=== PATIENT | male | born 1975 | race Caucasian/White ===

== ENCOUNTER 2019-05-22 03:06 | Inpatient (IN) ==
--- NOTE | 2019-05-22 03:35 | PROVIDER DOCUMENTATION ---
HPI-Chest Pain - General Stated Complaint: CHEST PAIN Time Seen by Provider: 05/22/19 03:15 Allergies/Adverse Reactions: Patient Allergies Allergy/AdvReac Type Severity Reaction Status Date / Time poison pedro luis extract Allergy RASH Verified 05/22/19 04:17 narcotics AdvReac Unknown Uncoded 05/22/19 04:17 Home Medications: Home Medication List Medication Instructions Recorded Confirmed Last Taken Type Lisinopril 10 mg PO DAILY 05/22/19 05/22/19 Unknown History Tadalafil 5 mg PO DAILY 05/22/19 05/22/19 Unknown History - History of Present Illness-CP Nature of Presenting Problem: A 43 y/o male presents with c/o left sided chest pain since 2 am. Woke up from sleep and started having chest pain, took aspirin 81 mg x4 tabs and it did not help. Pain is about a 6 on pain scale. Denies any radiation. Was sweating when he woke up. Denies any cough, sob or palpitations or URI symptoms or N/V/D. Denies any fever or chills. Denies any significant hx of HTN, DM, CAD. was on testosterone replacement therapy, was stopped about 3-4 weeks ago. Denies any injury. Review of Systems - Adult - REVIEW OF SYSTEMS - ADULT Constitutional: denies: no symptoms reported Eyes: denies: no symptoms reported Ears, Nose, Mouth & Throat: denies: no symptoms reported Cardiovascular: reports: see HPI Respiratory: denies: no symptoms reported Gastrointestinal: denies: no symptoms reported Genitourinary: denies: no symptoms reported Musculoskeletal: denies: no symptoms reported Integumentary: denies: no symptoms reported Neurological: denies: no symptoms reported Psychiatric: denies: no symptoms reported Endocrine: denies: no symptoms reported Hematologic/Lymphatic: denies: no symptoms reported Allergic/Immunologic: denies: no symptoms reported Past History - Adult - PAST MEDICAL HISTORY-ADULT Review of Records: reports: Nursing Assessment Review, Medications Reviewed, Social history reviewed & non-contributory. Physical Exam-General - PHYSICAL EXAM-ADULT Initial Vital Signs Reviewed: Yes - CONSTITUTIONAL General Appearance: appears well, alert, no apparent distress - EYES Eyes: PERRL/EOMI - HEAD, EARS, NOSE, MOUTH & THROAT HENMT: normocephalic/atraumatic, moist mucous membranes - NECK Neck: supple - RESPIRATORY Respiratory: lungs clear, no respiratory distress, no accessory muscle use - CARDIOVASCULAR Cardiovascular: regular rate, rhythm, no edema, no murmur - GASTROINTESTINAL (ABDOMEN) Abdominal Exam: non tender, soft - MUSCULOSKELETAL Back Exam: normal inspection, no CVA tenderness, no vertebral tenderness Extremity: no pedal edema - SKIN Integumentary: normal color, warm/dry - NEUROLOGIC Neurologic: grossly normal, no motor/sensory deficits - PSYCHIATRIC Psych/Mental Status: normal mood/affect, oriented x 3 - HEART Score HEART Score: History: Slightly Suspicious HEART Score: ECG: Normal HEART Score: Age: < or = 45 Years HEART Score: Risk Factors for Atherosclerotic Disease: 1 or 2 Risk Factors HEART Score: Troponin: < or = Normal Limit Total HEART Score:: 1 Progress - PLAN OF CARE/RESULTS Progress/Plan/Lab Results: Vital Signs - 8 hr 05/22/19 03:15 05/22/19 05:44 Temperature 98.2 F Pulse Rate 90 80 Respiratory Rate 20 17 Blood Pressure 146/77 114/63 O2 Sat by Pulse Oximetry 97 99 Laboratory Results - last 24 hr 05/22/19 05/22/19 05/22/19 03:25 03:25 03:25 WBC RBC Hgb Hct MCV MCH MCHC RDW Std Deviation Plt Count MPV Immature Gran % (Auto) Neut % (Auto) Lymph % (Auto) [place] % (Auto) Eos % (Auto) Baso % (Auto) Immature Gran # (Auto) Neut # (Auto) Lymph # (Auto) [place] # (Auto) Eos # (Auto) Baso # (Auto) D-Dimer, Quantitative 0.34 Sodium 140 Potassium 4.7 Chloride 100 Carbon Dioxide 29 Anion Gap 11 BUN 24 H Creatinine 1.2 Estimated GFR/1.73 m2 > 60 BUN/Creatinine Ratio 20 Glucose 112 H Calculated Osmolality 284 Calcium 9.6 Total Bilirubin 0.62 AST 109 H ALT 99 H Alkaline Phosphatase 49 Creatine Kinase 5249 H Creatine Kinase Index 0.3 CK-MB (CK-2) 17.89 H Troponin T High Sens 29 H Total Protein 7.1 Albumin 4.2 Globulin 2.9 Albumin/Globulin Ratio 1.4 05/22/19 03:25 WBC 10.80 RBC 5.15 Hgb 16.1 Hct 48.1 MCV 93.4 MCH 31.3 H MCHC 33.5 RDW Std Deviation 13.8 Plt Count 230 MPV 10.3 Immature Gran % (Auto) 0.0 Neut % (Auto) 58.7 Lymph % (Auto) 27.3 [place] % (Auto) 12.6 H Eos % (Auto) 1.0 Baso % (Auto) 0.4 Immature Gran # (Auto) 0.00 Neut # (Auto) 6.34 Lymph # (Auto) 2.95 [place] # (Auto) 1.36 H Eos # (Auto) 0.11 Baso # (Auto) 0.04 D-Dimer, Quantitative Sodium Potassium Chloride Carbon Dioxide Anion Gap BUN Creatinine Estimated GFR/1.73 m2 BUN/Creatinine Ratio Glucose Calculated Osmolality Calcium Total Bilirubin AST ALT Alkaline Phosphatase Creatine Kinase Creatine Kinase Index CK-MB (CK-2) Troponin T High Sens Total Protein Albumin Globulin Albumin/Globulin Ratio Orders Category Date Time Status CHEST-1 VIEW [RAD] Stat Exams 05/22/19 03:35 Taken CBC WITH ELECTRONIC DIFF [HEME] Stat Lab 05/22/19 03:25 Completed CK PROFILE [SP CHEM] Stat Lab 05/22/19 03:25 Completed COMPREHENSIVE METABOLIC PANEL [CHEM] Stat Lab 05/22/19 03:25 Completed D-DIMER [COAG] Stat Lab 05/22/19 03:25 Completed TROPONIN T HIGH SENSITIVITY Stat Lab 05/22/19 03:25 Completed 0.9% Sodium Chloride Inj [Ns] 1,000 ml Med 05/22/19 05:47 Active IV 999 mls/hr Ketorolac [Toradol] Med 05/22/19 03:36 Discontinued 30 mg IM NOW ONE Result Diagrams: 05/22/19 03:25 05/22/19 03:25 - CONSULTS/PCP/HOSPITALIST Notification #1 *Consult/PCP/Hospitalist*: d/w Dr Oates Time Discussed: 06:17 Consult Disposition: Admit (for observation) Departure - Departure Date of Disposition Decision: 05/22/19 Time of Disposition Decision: 06:20 DIAGNOSIS: Rhabdomyolysis Disposition: ADMITTED INPATIENT 09 Certified Medical Emergency: Emergent Condition: Stable Referrals and Follow-Ups: None,PCP [Primary Care Provider] - - Critical Care Note This patient required my direct & personal management of CC.: No Attestation - Physician/ ADELINA Attestation Patient care was provided by Advanced Practice Provider:: No The physician spent face to face time with patient:: Yes Advanced Practice Provider documentation review:: Supervising physician onsite and consulted in the evaluation and care of this patient. The physician did have a face to face encounter with the patient.
[2019-05-22] MEDS ORDERED: TORADOL IM ONE (03:36)
[2019-05-22 04:22] LABS: BASO# 0.04 X1000 (0.0-0.2); BASO% 0.4 % (0.0-0.8); EOS# 0.11 X1000 (0.0-0.7); HEMATOCRIT 48.1 % (42.0-52.0); HEMOGLOBIN 16.1 g/dL (14.0-18.0); LYMPH# 2.95 X1000 (1.2-3.4); LYMPH% 27.3 % (20.5-51.1); MCH 31.3 PG (27-31); MCHC 33.5 g/dL (33-37); MCV 93.4 FL (81-99); MONO# 1.36 X1000 (0.11-0.59); MONO% 12.6 % (1.7-9.3); MPV 10.3 FL (7.4-10.4); NEUT# 6.34 X1000 (1.4-6.5); NEUT% 58.7 % (42.2-75.2); PLT 230 X1000 (130-400); RBC 5.15 XMIL (4.7-6.1); RDW 13.8 % (11.5-14.5)
[2019-05-22 05:07] LABS: AGAP 11; ALB/GLOB RATIO 1.4; ALBUMIN 4.2 g/dL (3.5-5.0); ALKALINE PHOSPHATASE 49 U/L (32-122); BUN 24 mg/dL (8-22); CALCIUM 9.6 mg/dL (8.8-10.2); CHLORIDE 100 mmol/L (98-107); COSMO 284; CREATININE 1.2 mg/dL (0.7-1.2); ESTIMATED GFR > 60; GLUCOSE 112 mg/dL (70-104); GOT 109 U/L (10-34); GPT 99 U/L (10-44); POTASSIUM 4.7 mmol/L (3.5-5.1); SODIUM 140 mmol/L (136-145); TCO2 29 mmol/L (25-35); TOTAL BILIRUBIN 0.62 mg/dL (0.20-1.00); TOTAL PROTEIN 7.1 g/dL (6.3-8.3)
[2019-05-22 05:14] LABS: CK PROFILE 5249 U/L (24-204)
[2019-05-22 05:41] LABS: CK INDEX 0.3 (0.0-2.5); CK-MB 17.89 ng/mL (0.0-5.0)
[2019-05-22] MEDS ORDERED: NS 1,000 ML IV ONE ×2 (05:47→07:51)
--- NOTE | 2019-05-22 06:58 | HISTORY AND PHYSICAL ---
PRIMARY CARE PHYSICIAN: None. CHIEF COMPLAINT: Chest pain. HISTORY OF PRESENTING ILLNESS: This is a 43-year-old male without any significant past medical history, who presented to the emergency department with 3 days history of having left-sided chest pain. The patient states that recently he was working out more heavier with weights and states that he also stopped his testosterone replacement therapy due to having abnormal liver enzymes. He was seen in the ED. He had laboratories drawn which did also show a markedly elevated CPK and suspected possibly he had rhabdomyolysis. Due to these findings, it was thought that we will place him for observation for further evaluation and management. At the time of my examination, the patient denied any headache, fever, chills, nausea, vomiting, diarrhea, hemoptysis, melena or weight changes, but complained of chest discomfort. PAST MEDICAL HISTORY: None. PAST SURGICAL HISTORY: Hernia repair. Vasectomy. ALLERGIES: Narcotics. CURRENT MEDICATIONS: None. SOCIAL HISTORY: He is a former smoker. History of alcohol and illicit drug use in the past. FAMILY HISTORY: No history of coronary disease. REVIEW OF SYSTEMS: A 14-point review of systems is as in HPI, other systems negative. PHYSICAL EXAMINATION: GENERAL: Cooperative, friendly male. He is resting more comfortably now. VITAL SIGNS: Temperature 98.2 degrees, pulse 90, respirations 20, blood pressure 146/77. HEENT: Atraumatic, normocephalic. Extraocular movements intact. PERRLA. NECK: No masses. CHEST: Clear to auscultation. CARDIOVASCULAR: Regular rate and rhythm. S1, S2. ABDOMEN: Soft. Positive bowel sounds. EXTREMITIES: No edema. NEUROLOGIC: He is awake, alert, and oriented x3. : No bladder distention. SKIN: Warm. LABORATORIES AND STUDIES: D-dimer 0.34. WBC 10.80, hemoglobin 16.1, hematocrit 48.1, platelets 230,000. Sodium 140, potassium 4.7, chloride 100, CO2 is 29, BUN is 24, creatinine is 1.2, glucose is 112. CK is 5,249. ASSESSMENT: A 43-year-old male, without a significant past medical history, who presented to the emergency department with 3 days history of having chest pain. The patient apparently has been working out more than usual and he has been off of his testosterone replacement therapy. He complained of 3 days history of persistent chest discomfort. He was seen in the ED and noted to have elevated CKs, suspected for rhabdomyolysis. Subsequently, we will place him for observation for further evaluation and management. 1. Chest pain, atypical, probably musculoskeletal. 2. Suspected rhabdomyolysis. PLAN: 1. We will admit the patient to a medical floor with telemetry. 2. We will continue to check cardiac enzymes and trend it. 3. We will give the patient adequate pain control and muscle relaxant. 4. Continue with IV fluid hydration. Monitor his CK enzyme levels. 5. We will continue to follow, and reassess and make further recommendations based on patient's clinical course. cc: Pelon Oates MD MTDD
--- NOTE | 2019-05-22 07:06 | Diag Imaging Result Doc PS360 ---
EXAM: CHEST-1 VIEW 05/22/2019 HISTORY: CP TECHNIQUE: AP portable at 0405 COMMENT: There is no evidence of acute cardiac or pulmonary disease. There are no previous studies available for comparison. IMPRESSION: No evidence of acute disease. Electronically signed by Jason Dwyer 05/22/2019 7:04 AM
[2019-05-22] MEDS ORDERED: FLEXERIL PO ONE (07:51)
[2019-05-22] MEDS ORDERED: ZOFRAN IV PRN (07:51)
[2019-05-22] MEDS ORDERED: TYLENOL PO PRN (07:51)
[2019-05-22] MEDS: ASPIRIN PO SCH (08:08)
--- NOTE | 2019-05-22 08:17 | EKG Report ---
Test Performed on : 05/22/2019 03:12:30 AM Test Reason : ED. NO EKG ORDER FOR MUSE Blood Pressure : / mmHG Vent. Rate : 095 BPM Atrial Rate : 095 BPM P-R Int : 152 ms QRS Dur : 092 ms QT Int : 338 ms P-R-T Axes : 075 020 002 degrees QTc Int : 424 ms Normal sinus rhythm. Normal ECG No previous ECGs available Unconfirmed Result
[2019-05-22] MEDS ORDERED: PRINIVIL PO SCH (09:00)
[2019-05-22] MEDS ORDERED: NS 1,000 ML IV SCH (09:15)
[2019-05-22] MEDS: PRILOSEC PO SCH (09:24)
[2019-05-22] MEDS: NS 1,000 ML IV SCH ×3 (09:25→22:24)
[2019-05-22 09:49] LABS: CK INDEX 0.3 (0.0-2.5); CK-MB 13.51 ng/mL (0.0-5.0)
--- NOTE | 2019-05-22 14:57 | ECHO REPORT ---
ORDER DATE: 05/22/2019 INTERPRETING PHYSICIAN: Dr. Navdeep Michel. ECHOCARDIOGRAPHIC MEASUREMENTS: 1. Interventricular septum: 1.4 cm. 2. Left ventricular posterior wall: 1.4 cm. 3. Diastolic diameter: 5.2 cm. 4. Left atrium: 4 cm. 5. Aorta: 2.2 cm. SUMMARY OF THE 2-DIMENSIONAL IMAGIN. Mitral valve was normal. 2. Tricuspid valve was normal. 3. Pulmonic valve was normal. 4. There was mild pulmonary regurgitation. 5. Aortic valve leaflets were trileaflet. There was significant calcification noted on the noncoronary cusp of the aortic valve. 6. There was mild tricuspid regurgitation. Peak velocity across the tricuspid valve was less than 2 m/sec. 7. There was mild mitral regurgitation. 8. Peak velocity across the aortic valve was 2.5 m/sec with a mean gradient of 14 mmHg, aortic valve area of 2.6 squared cm. There is no aortic stenosis. There is aortic sclerosis. There is no aortic regurgitation. 9. Normal left ventricular cavity size. Mild left ventricular hypertrophy. Estimated ejection fraction of 60%. 10. Normal diastolic function. 11. Normal right ventricular cavity size and function. 12. There is no pericardial effusion or obvious intracardiac mass or thrombus seen. cc: MD Hector Diaz MD
[2019-05-23 02:08] LABS: CK INDEX 0.3 (0.0-2.5); CK-MB 7.56 ng/mL (0.0-5.0)
[2019-05-23] MEDS: NS 1,000 ML IV SCH ×4 (04:50→18:07)
[2019-05-23] MEDS: PRILOSEC PO SCH (06:17)
[2019-05-23 07:42] LABS: AGAP 10; ALB/GLOB RATIO 1.4; ALBUMIN 3.8 g/dL (3.5-5.0); ALKALINE PHOSPHATASE 42 U/L (32-122); BUN 16 mg/dL (8-22); CALCIUM 8.7 mg/dL (8.8-10.2); CHLORIDE 102 mmol/L (98-107); COSMO 279; CREATININE 1.1 mg/dL (0.7-1.2); ESTIMATED GFR > 60; GLUCOSE 101 mg/dL (70-104); GOT 57 U/L (10-34); GPT 71 U/L (10-44); POTASSIUM 4.3 mmol/L (3.5-5.1); SODIUM 139 mmol/L (136-145); TCO2 27 mmol/L (25-35); TOTAL BILIRUBIN 0.53 mg/dL (0.20-1.00); TOTAL PROTEIN 6.6 g/dL (6.3-8.3)
[2019-05-23 07:46] LABS: CK PROFILE 1878 U/L (24-204)
[2019-05-23 07:58] LABS: BASO# 0.03 X1000 (0.0-0.2); BASO% 0.3 % (0.0-0.8); EOS# 0.05 X1000 (0.0-0.7); EOS% 0.5 % (0.0-10.0); HEMOGLOBIN 14.6 g/dL (14.0-18.0); IMM GRAN# 0.02 X1000 (0.0-0.04); IMM GRAN% 0.2 % (0.0-0.5); LYMPH# 1.42 X1000 (1.2-3.4); LYMPH% 14.2 % (20.5-51.1); MCH 30.5 PG (27-31); MCHC 32.4 g/dL (33-37); MCV 94.1 FL (81-99); MONO# 1.48 X1000 (0.11-0.59); MONO% 14.8 % (1.7-9.3); MPV 10.5 FL (7.4-10.4); NEUT# 6.97 X1000 (1.4-6.5); PLT 197 X1000 (130-400); RBC 4.78 XMIL (4.7-6.1); RDW 13.9 % (11.5-14.5); WBC 9.97 X1000 (4.8-10.8)
[2019-05-23 08:08] LABS: CK INDEX 0.3 (0.0-2.5); CK-MB 6.44 ng/mL (0.0-5.0)
[2019-05-23 08:09] LABS: CHOLESTEROL 162 mg/dL (0-200); HDL 49 mg/dL (35-55); LDL 101 mg/dL; TRIGLYCERIDES 60 mg/dL (39-160); VLDL 12 mg/dL
[2019-05-23] MEDS: NORVASC PO SCH (09:28)
[2019-05-23] MEDS: ASPIRIN PO SCH (09:28)
[2019-05-23] MEDS: ULTRAM PO PRN ×2 (09:29→15:56)
--- NOTE | 2019-05-23 11:47 | PROGRESS NOTE ---
DATE: 05/23/2019 SUBJECTIVE: The patient is complaining today of generalized achiness. He is still having some chest pain, but only with deep inspiration. His echocardiogram is good, just mild left ventricular hypertrophy. His x-ray is normal. He works out at least 5 times per week, and as per the patient, he lifts a lot of weight. Apparently, he has been training really hard. He uses some vitamin supplements including creatine. Today his temperature increased a little bit to 99.7. His troponins are negative x4. His CK level is trending down. Initially was 5249 and today is 1878. I will continue with the IV fluids. OBJECTIVE: Vital Signs: Temperature 99.7 degrees, pulse 98, respiratory rate 19, blood pressure 157/71, and oxygen saturation 98% on room air. HEENT: Head normocephalic. No trauma. PERRLA. Neck: Supple. No JVD. No masses. Central trachea. Chest: Clear to auscultation. No wheezing. No rales. No tenderness to palpation. Abdomen: Soft, nontender, nondistended. No hepatosplenomegaly. Extremities: No edema, no clubbing, no cyanosis. Neurological: The patient is completely awake and alert. He is oriented x3. No focal deficits. LABORATORY DATA: WBC 9.9, hemoglobin 14.6, hematocrit 45, platelets 197,000. Sodium 139, potassium 4.3, chloride 102, bicarbonate 27, BUN 16, creatinine 1.1, glucose 101, calcium 8.7. AST 57, ALT 71, alkaline phosphatase 42. CK level 1878. ASSESSMENT AND PLAN: 1. Rhabdomyolysis. I do believe this is related to heavy workout. This patient has been working out at least 5 times per week. He has been training really hard and lifting a lot of weight, so this probably is because of muscle destruction. I will continue with the intravenous fluids and monitoring this patient closely. Initially, his CK level was 5249 and today is 1878, and it has been trending down nicely. He does take some supplements like creatine at home and other multivitamins. 2. Chest pain located in the left side of the chest. It is nonspecific and likely atypical. It is reproducible with deep inspiration, sharp. Cardiac enzymes/troponins are negative x4. I did an echocardiogram that showed mild left ventricular hypertrophy, but no other issues. 3. Elevated liver function tests. As per the patient, this is chronic. It is also trending down. Apparently, he was using testosterone, which has been stopped because of the elevation of the liver function tests. We will continue to monitor, and we will avoid hepatotoxic medications. 4. Mild acute kidney injury upon admission, resolved. His creatinine is probably due to his muscle mass, but still within normal limits. 5. Hypertension. He used to be on lisinopril, but since he is having rhabdomyolysis, I will stop this treatment due to the possibility of acute kidney problems. I have switched to amlodipine, let us see how he does. DISCUSSION: Overall, this patient seems to be stable. I do believe this patient can be discharged in the next 24 to 48 hours if the CK level is going down and he is feeling better. He had a low-grade temperature today. We will keep an eye on this. He has not been at home. He has been outside and actually working out in the gym. If we see that he is having symptoms like shortness of breath or more elevated temperature, probably we need to ask to rule out Coronavirus, but for now, I will monitor. cc: Hector Metz MD
[2019-05-23] MEDS: TYLENOL PO PRN (23:26)
[2019-05-24] MEDS: NS 1,000 ML IV SCH ×2 (04:06→13:45)
[2019-05-24 05:08] LABS: EOS# 0.06 X1000 (0.0-0.7); EOS% 0.5 % (0.0-10.0); LYMPH% 12.8 % (20.5-51.1); MCH 31.4 PG (27-31); MCHC 32.7 g/dL (33-37); MCV 96.3 FL (81-99); MONO# 1.92 X1000 (0.11-0.59); MONO% 16.4 % (1.7-9.3); MPV 9.8 FL (7.4-10.4); PLT 184 X1000 (130-400); RBC 5.09 XMIL (4.7-6.1); RDW 13.9 % (11.5-14.5); WBC 11.72 X1000 (4.8-10.8)
[2019-05-24 05:47] LABS: LYMPHS 15 % (21-51); MONO 14 % (1-9); SEGS 71 % (42-75)
[2019-05-24 05:49] LABS: BUN 13 mg/dL (8-22); CALCIUM 8.7 mg/dL (8.8-10.2); TOTAL BILIRUBIN 0.64 mg/dL (0.20-1.00)
[2019-05-24 05:51] LABS: AGAP 15; ALB/GLOB RATIO 0.7; ALBUMIN 2.9 g/dL (3.5-5.0); ALKALINE PHOSPHATASE 41 U/L (32-122); CHLORIDE 100 mmol/L (98-107); CK PROFILE 1158 U/L (24-204); ESTIMATED GFR > 60; GLUCOSE 88 mg/dL (70-104); GOT 54 U/L (10-34); GPT 65 U/L (10-44); POTASSIUM 5.1 mmol/L (3.5-5.1); SODIUM 133 mmol/L (136-145); TCO2 18 mmol/L (25-35); TOTAL PROTEIN 6.9 g/dL (6.3-8.3)
[2019-05-24 05:55] LABS: COSMO 266
[2019-05-24] MEDS: PRILOSEC PO SCH (06:10)
[2019-05-24 06:11] LABS: CK INDEX 0.3 (0.0-2.5); CK-MB 3.93 ng/mL (0.0-5.0)
--- NOTE | 2019-05-24 06:21 | Diag Imaging Result Doc PS360 ---
EXAM: CHEST-PORTABLE HISTORY: CP TECHNIQUE: Single view COMPARISON: 05/22/2019 FINDINGS: The lungs are well expanded. The heart is not enlarged. The vessels are not distended. Interval development of a dense infiltrate in the mid left lung. No effusion identified. IMPRESSION: Left-sided pneumonia Electronically signed by Curt Cortes 05/24/2019 6:19 AM
[2019-05-24] MEDS: ASPIRIN PO SCH ×2 (07:57→10:26)
[2019-05-24] MEDS: NORVASC PO SCH ×2 (07:57→10:26)
[2019-05-24] MEDS: TYLENOL PO PRN ×3 (07:57→22:45)
[2019-05-24] MEDS ORDERED: VANCOMYCIN IV PER PHARMACY MISC SCH (12:00)
[2019-05-24] MEDS: ZOSYN 3.375 GM in NS 50 ML IV SCH ×2 (13:45→20:32)
--- NOTE | 2019-05-24 14:13 | PROGRESS NOTE ---
DATE: 05/24/2019 SUBJECTIVE: Patient since last night and this morning has been spiking fever. The last one that we have is from this morning 102.4 with chills. He denies any shortness of breath but he reports mild cough. No really sore throat or sneezing. OBJECTIVE: Vital Signs: Temperature 98.6 degrees, heart rate 84, respiratory rate 18, blood pressure 136/65 O2 saturation 98% on room air. General: This is a 43-year-old, male, lying in bed, in no acute distress. Cardiovascular: S1, S2 heard. No murmurs, gallops, or rubs. Regular rate and rhythm. Respiratory: Bilaterally to auscultation. No work of breathing or using accessory muscles. Abdomen: Soft, nontender to palpation. Bowel sounds present. No organomegaly. Extremities: No clubbing, cyanosis, or edema. Peripheral pulses present in both legs. Neurological: Patient alert oriented x3. Moves 4 extremities. LABORATORY DATA: White cell count 11.72 with hemoglobin 16.0 hematocrit 49.0. Lymphocytes 12.8. Sodium 133. Alkaline phosphatase 1158. ASSESSMENT AND PLAN: 1. Rhabdomyolysis. That condition is getting worse with IV fluids. We will continue with the same management. 2. Elevated liver function tests. Apparently there has been documented like chronic and is trending down. Apparently he has been using testosterone, that is reason why those have been getting higher. In any case, we will continue to monitor BMP. 3. Mild acute kidney injury. That condition is completely resolved. 4. Left pneumonia. This patient was admitted basically to the hospital for rhabdomyolysis and elevated liver function tests. That is actually getting better. Since yesterday he started having fever chills some cough and the x-ray from this morning revealed left- sided pneumonia. The patient denies any sick contacts. I think considering all this information prefer to go ahead and testing for Coronavirus Disease 19. We are going to continue with current antibiotics. In this case, Esmen assuming this is a bacterial pneumonia as well. It is important to remark that he was complaining of chest pain non typical. We will see what this test shows. cc: Cuco Silverman MD [facility] HOSPITALChris
[2019-05-24] MEDS: ULTRAM PO PRN ×2 (16:16→22:45)
[2019-05-24] MEDS: VANCOMYCIN 2 GM in NS 500 ML IV SCH (16:17)
[2019-05-25] MEDS: ZOSYN 3.375 GM in NS 50 ML IV SCH ×4 (02:57→23:03)
[2019-05-25] MEDS: NS 1,000 ML IV SCH ×2 (03:25→23:05)
[2019-05-25] MEDS: VANCOMYCIN 2 GM in NS 500 ML IV SCH ×2 (03:58→14:52)
[2019-05-25 05:51] LABS: BASO# 0.04 X1000 (0.0-0.2); BASO% 0.4 % (0.0-0.8); EOS# 0.15 X1000 (0.0-0.7); EOS% 1.6 % (0.0-10.0); HEMOGLOBIN 15.6 g/dL (14.0-18.0); IMM GRAN# 0.04 X1000 (0.0-0.04); IMM GRAN% 0.4 % (0.0-0.5); LYMPH# 1.28 X1000 (1.2-3.4); LYMPH% 13.7 % (20.5-51.1); MCH 30.8 PG (27-31); MCHC 33.2 g/dL (33-37); MCV 92.7 FL (81-99); MONO# 1.39 X1000 (0.11-0.59); MONO% 14.8 % (1.7-9.3); MPV 10.2 FL (7.4-10.4); NEUT# 6.47 X1000 (1.4-6.5); NEUT% 69.1 % (42.2-75.2); PLT 172 X1000 (130-400); RBC 5.07 XMIL (4.7-6.1); RDW 13.5 % (11.5-14.5); WBC 9.37 X1000 (4.8-10.8)
[2019-05-25 06:13] LABS: AGAP 12; BUN 14 mg/dL (8-22); CALCIUM 8.7 mg/dL (8.8-10.2); CHLORIDE 96 mmol/L (98-107); COSMO 275; CREATININE 1.2 mg/dL (0.7-1.2); ESTIMATED GFR > 60; GLUCOSE 109 mg/dL (70-104); POTASSIUM 4.1 mmol/L (3.5-5.1); SODIUM 137 mmol/L (136-145); TCO2 29 mmol/L (25-35)
[2019-05-25] MEDS: PRILOSEC PO SCH (06:28)
[2019-05-25] MEDS: TYLENOL PO PRN ×3 (06:28→23:03)
[2019-05-25] MEDS: ULTRAM PO PRN ×3 (06:28→23:03)
[2019-05-25] MEDS: NORVASC PO SCH (08:18)
[2019-05-25] MEDS: ASPIRIN PO SCH (08:18)
--- NOTE | 2019-05-25 12:52 | PROGRESS NOTE ---
DATE: 05/25/2019 SUBJECTIVE: Patient continues to have fever. Denies any shortness of breath. He reports pleuritic chest pain in the left side. OBJECTIVE: Vital Signs: Temperature 99.4 degrees, heart rate 98, respiratory rate 18, blood pressure 124/50, O2 saturation 96% on room air. Temperature max this morning at 4 a.m. was 102.2 degrees. GENERAL EXAMINATION: This is a 43-year-old, male, lying in bed, in no acute distress. Cardiovascular Examination: S1 and S2 heard. No murmurs, gallops, or rubs. Regular rate and rhythm. Respiratory Exam: Clear bilaterally to auscultation. No work of breathing or using accessory muscles. Abdomen: Soft, nontender to palpation. Bowel sounds present. No organomegaly. Extremities: No clubbing, cyanosis, or edema. Peripheral pulses present in both legs. Neurological Exam: Patient alert and oriented x3. Moves 4 extremities. LABORATORY DATA: Reviewed. ASSESSMENT AND PLAN: 1. Rhabdomyolysis. Condition is getting better with IV fluids. Renal function is completely okay. We will continue to monitor. 2. Elevated liver function tests. Aware. We will continue to monitor. That condition is deemed to be chronic. 3. Acute kidney injury, resolved. 4. Left lower lobe pneumonia. The patient was admitted for conditions mentioned above but started having fevers here and chest pain in the left side so patient is being treated with vancomycin and Zosyn but he continues to have fever. The CBC showed leukopenia so at this point, we will continue with same management, but we have tested him for Coronavirus Disease 2019. 5. Disposition. On this patient, basically I am waiting for this patient to feel better and not have fever for at least 24 hours and then regardless of the results of this Coronavirus Disease test I am planning to discharge him. cc: Cuco Silvemran MD
[2019-05-26] MEDS: ZOSYN 3.375 GM in NS 50 ML IV SCH ×4 (01:04→21:58)
[2019-05-26] MEDS: VANCOMYCIN 2 GM in NS 500 ML IV SCH ×2 (02:30→17:10)
[2019-05-26] MEDS: PRILOSEC PO SCH ×2 (05:07→07:26)
[2019-05-26 06:00] LABS: BASO# 0.04 X1000 (0.0-0.2); BASO% 0.5 % (0.0-0.8); EOS# 0.19 X1000 (0.0-0.7); EOS% 2.3 % (0.0-10.0); HEMATOCRIT 49.1 % (42.0-52.0); HEMOGLOBIN 16.1 g/dL (14.0-18.0); IMM GRAN# 0.02 X1000 (0.0-0.04); IMM GRAN% 0.2 % (0.0-0.5); LYMPH% 20.3 % (20.5-51.1); MCH 30.3 PG (27-31); MCHC 32.8 g/dL (33-37); MCV 92.5 FL (81-99); MONO# 1.03 X1000 (0.11-0.59); MONO% 12.3 % (1.7-9.3); MPV 9.5 FL (7.4-10.4); NEUT# 5.38 X1000 (1.4-6.5); NEUT% 64.4 % (42.2-75.2); PLT 226 X1000 (130-400); RBC 5.31 XMIL (4.7-6.1); RDW 13.3 % (11.5-14.5); WBC 8.36 X1000 (4.8-10.8)
[2019-05-26 06:43] LABS: AGAP 14; BUN 12 mg/dL (8-22); CALCIUM 8.7 mg/dL (8.8-10.2); CHLORIDE 100 mmol/L (98-107); COSMO 277; CREATININE 1.2 mg/dL (0.7-1.2); ESTIMATED GFR > 60; GLUCOSE 96 mg/dL (70-104); POTASSIUM 5.2 mmol/L (3.5-5.1); SODIUM 139 mmol/L (136-145); TCO2 25 mmol/L (25-35)
[2019-05-26] MEDS: ASPIRIN PO SCH (09:44)
[2019-05-26] MEDS: NORVASC PO SCH (09:44)
--- NOTE | 2019-05-26 15:36 | PROGRESS NOTE ---
DATE: 05/26/2019 INTERVAL HISTORY: The patient is pretty asymptomatic at this point. Still having fairly significant fevers. Fevers yesterday morning to 102.2 and overnight to 101.1. Respiratory status remains stable. No other acute events. No new complaints. REVIEW OF SYSTEMS: Twelve point review of systems negative except as per interval history. LABS: WBC 8.39, hemoglobin 16.1, hematocrit 49.0, platelets 226,000. Sodium 139, potassium 5.2, BUN 12, creatinine 1.2, glucose 96. VITALS: T-max 101.1 degrees, pulse 76, respirations 17, blood pressure 143/72, O2 saturation 100% on room air. PHYSICAL EXAMINATION: General: No acute distress. Vitals: As above. HEENT: Normocephalic, atraumatic. Moist mucous membranes. No cervical adenopathy. Cardiovascular: Regular rate and rhythm. No murmurs noted. Pulmonary: Clear to auscultation bilaterally. No wheezing, rales, or rhonchi. Abdomen: Soft, nontender, nondistended. Bowel sounds positive. Extremities: Peripheral pulses intact. No clubbing, cyanosis, or edema. Neurologic: Cranial nerves grossly intact. No focal deficits identified. Psychiatric: Normal mood and affect. Awake, alert, and oriented x3. ASSESSMENT AND PLAN: 1. Nontraumatic rhabdomyolysis, improving on last check with fluids. Recheck pending. We will plan on continuing fluids at least one more day. 2. Left lower lobe pneumonia, possible Covid-19. Patient with chest x-ray suggesting pneumonia. Respiratory status actually pretty good. Oxygen is fine. No tachycardia but continuing to have pretty significant fevers. Currently on antibiotics with vancomycin and Zosyn as above. Clinically improved but we will continue to monitor at least one more day given ongoing fevers. 3. Acute kidney injury, resolved. 4. Mildly elevated liver function tests. Bilirubin was never elevated. Mildly elevated AST and ALT, which trended down. Likely no need for further workup at this time. 5. Disposition. Hopefully home tomorrow if he will stop having fevers.
[2019-05-26] MEDS: NS 1,000 ML IV SCH ×2 (17:10→17:46)
[2019-05-27] MEDS: ZOSYN 3.375 GM in NS 50 ML IV SCH ×3 (01:03→14:24)
[2019-05-27] MEDS: ULTRAM PO PRN (01:04)
[2019-05-27] MEDS: NS 1,000 ML IV SCH ×2 (01:06)
[2019-05-27] MEDS: PRILOSEC PO SCH (06:11)
[2019-05-27] MEDS: VANCOMYCIN 2 GM in NS 500 ML IV SCH (06:11)
[2019-05-27 07:15] LABS: BASO# 0.04 X1000 (0.0-0.2); BASO% 0.5 % (0.0-0.8); EOS# 0.34 X1000 (0.0-0.7); HEMATOCRIT 45.5 % (42.0-52.0); HEMOGLOBIN 15.2 g/dL (14.0-18.0); IMM GRAN# 0.02 X1000 (0.0-0.04); IMM GRAN% 0.2 % (0.0-0.5); LYMPH# 1.22 X1000 (1.2-3.4); LYMPH% 14.2 % (20.5-51.1); MCH 30.7 PG (27-31); MCHC 33.4 g/dL (33-37); MCV 91.9 FL (81-99); MONO% 11.6 % (1.7-9.3); MPV 9.5 FL (7.4-10.4); NEUT# 5.98 X1000 (1.4-6.5); NEUT% 69.5 % (42.2-75.2); PLT 294 X1000 (130-400); RBC 4.95 XMIL (4.7-6.1); RDW 13.3 % (11.5-14.5)
[2019-05-27 07:45] LABS: AGAP 12; BUN 13 mg/dL (8-22); CALCIUM 8.7 mg/dL (8.8-10.2); CHLORIDE 100 mmol/L (98-107); COSMO 276; CREATININE 0.9 mg/dL (0.7-1.2); ESTIMATED GFR > 60; GLUCOSE 138 mg/dL (70-104); POTASSIUM 4.1 mmol/L (3.5-5.1); SODIUM 137 mmol/L (136-145); TCO2 25 mmol/L (25-35)
[2019-05-27 08:00] LABS: CK INDEX 1.2 (0.0-2.5); CK-MB 8.12 ng/mL (0.0-5.0)
[2019-05-27] MEDS: ASPIRIN PO SCH (09:50)
[2019-05-27] MEDS: NORVASC PO SCH (09:50)
[2019-05-27 12:08] VITALS: BP 141/70
--- NOTE | 2019-05-27 18:09 | DISCHARGE SUMMARY ---
ADMISSION DATE: 05/22/2019 DISCHARGE DATE: 05/27/2019 DISCHARGE DISPOSITION: Home. DISCHARGE CONDITION: Mr. Crouch is hemodynamically stable. He denies any chest pain, shortness of breath, or cough. He could have mild chest discomfort if he would take a deep breath. He was advised to remain quarantined for at least 14 days as he was awaiting his Covid-19 results. He was advised to avoid heavy physical activity considering his rhabdomyolysis. He was advised to complete his antibiotic course and not take his tadalafil as well as hydrochlorothiazide, human chorionic gonadotropin supplements until he sees his regular physician after completion of antibiotic course. He understood it. DISCHARGE DIAGNOSES: 1. Nontraumatic rhabdomyolysis due to intense physical activity. 2. Left upper lobe pneumonia. 3. Suspicion of Covid-19 infection. 4. Acute kidney injury due to rhabdomyolysis. 5. Transaminitis due to acute rhabdomyolysis. 6. Obesity. 7. Essential hypertension. OTHER DIAGNOSES: 1. Low testosterone. 2. History of essential hypertension. DISCHARGE MEDICATIONS: 1. Levofloxacin 750 mg daily, 5 tablets have been prescribed. 2. Lisinopril, the dose of which was increased from 10 mg to 20 mg, which is his home medication. 3. Patient was advised to hold his tadalafil 5 mg, as well as human chorionic gonadotropin supplement that he was taking subcutaneous injection of. He could not really tell me the exact indication. He states he was taking his human chorionic gonadotropin injections for his weakness and anhedonia. VITALS: At the time of discharge, temperature 98.5 degrees, pulse 70, respiratory rate 18, blood pressure 140/76, saturating 97% on room air. PHYSICAL EXAMINATION: Oral cavity is moist. Air entry bilaterally equal. No wheeze or rhonchi. He has mild crackles in the left suprascapular region. S1, S2 normal. No murmur, rub, or gallop. Abdomen is soft, nontender. No lower extremity edema. He was alert and oriented x3. LABS: At the time of admission and discharge, WBC 8.6, hemoglobin 15.2, platelets 294,000. BUN 13, creatinine 0.9. Creatine kinase on admission was 5200 which decreased to 600 at the time of discharge. MICROBIOLOGY: Blood culture did not have any growth. IMAGING: Chest x-ray on May 21 did not have any evidence of acute disease. Chest x-ray on May 23 had left-sided pneumonia. Echocardiogram on May 21 had ejection fraction of 60% with significant calcification on the noncoronary cusp of the aortic valve without any aortic stenosis or aortic regurgitation. Electrocardiogram on May 21 had a normal sinus rhythm. HOSPITAL COURSE SUMMARY: Mr. Khan is a 43-year-old, man who initially presented on 05/22/2019 with chief complaints of chest discomfort. He has been working out intensely with a heavier weight since last few days. However, he started developing left-sided chest discomfort so he presented to the emergency room. Noticeably, the patient has been on testosterone replacement therapy, which was held probably 1 month ago because of abnormal liver function tests. Since then, he was started on subcutaneous hCG injections. In any case, when he presented to the emergency room, he was found to have a temperature of 98.2 degrees, pulse of 90, respiratory rate of 20, and blood pressure of 146/77. His initial labs, however, were remarkable for elevated creatine kinase of 5200. He also had transaminitis with ALT of 99 and AST of 109. He was started on intravenous fluids. He was admitted for management of acute nontraumatic rhabdomyolysis, which was thought to be related to intense physical activity. While inside the hospital, 24 hours later, he started developing a fever of 99.7, which started increasing up to 102.9. He was febrile for almost 48 to 72 hours. He was started on broad- spectrum antibiotics and repeat chest x-ray had suggested left upper lobe pneumonia. With intravenous antibiotics, vancomycin and Zosyn, his fever resolved and he symptomatically improved so it was decided to change it to levofloxacin at the time of discharge and he should complete a 5 days course. There was a suspicion of Covid-19, though he did not have any definitive exposure history. Considering his fever, lung infiltrate, nonproductive cough, and chest x-ray findings, Covid-19 test was sent, the results of which are pending at the moment. The patient is provided a return to work form only after 14 days after discharge and he was advised to remain quarantined. Hopefully, the lab will notify the patient of his results whenever it is back. Twenty-five minutes were spent discharging the patient. Plan of care was extensively discussed with the patient. He was allowed to ask questions. All of his questions were answered. cc: Roc Tejada MD
== END 2019-05-27 17:56 | disposition home or self-care (01) | DRG 557 ==
LOC: EDIPHOLD 03:06 → ED 03:06 → SUATTDRO 07:44 → OBSVTOIN 07:44 → 3N 08:05 → 4N 05-24 14:20
PROVIDERS: ATTEND Internal Medicine